=== PATIENT | male | born 1990 | race Caucasian/White ===

== ENCOUNTER 2017-10-06 08:47 | Emergency (ER) | payer MEDICAID, SELFPAY ==
[2017-10-06 08:50] VITALS: BP 126/81; PULSE 76; RESP 16; TEMP 36.3; O2SAT 97; BMI 34.0
--- NOTE | 2017-10-06 09:09 | ED.VISSUMM ---
- ER Visit Summary Date of Service: 10/06/17 Chief Complaint: Depression History of Present Illness: The patient is a 27 M who presents with depression and suicidal gesture that occurred today. Patient states he got into an argument with his girlfriend yesterday and has been feeling more depressed since that time. Patient states he tried to cut his wrist today. Patient states he has been hospitalized one time in the past for depression but does not currently see a psychiatrist. Patient does not take any antidepressant medications. Patient denies any other symptoms at the present time. Physical Examination: Vital signs are stable. Patient is afebrile. Patient is in no acute distress. Patient does have a depressed mood and flat affect. Patient does admit to suicidal ideations. Skin is warm and dry. There are superficial linear abrasions of the volar aspect of the left wrist. There is no bleeding noted. There are no gapping's of the wound margins. Oral mucosa is pink and moist. Heart was regular rate and rhythm. Lungs are clear and equal bilaterally. There is good respiratory effort noted. Abdomen is soft. Bowel sounds are normal. There is no tenderness noted. Cranial nerves II through XII are intact. There are no focal motor or sensory deficits noted. Test Results: CBC, comprehensive metabolic profile, urine tox screen, and serum alcohol level were obtained and were within normal limits. Emergency Department Course and Treatment: Crisis was in to evaluate the patient. They feel the patient is safe to go home. I agree I do not feel the patient is actively suicidal I think this is more of an attention seeking gesture. Patient was instructed to follow-up with crisis as scheduled. Patient understood and was agreeable with the plan. All questions were answered. Disposition: Discharged home Impression: Depression This note was generated with Rock[employer] dictation software. It may contain incorrect words, spelling, and punctuation that were not noted in review of the chart prior to signing ED Disposition - Plan for ED Patient: Disposition: Home or Assisted Living Chief Complaint: Suicidal Diagnosis: Depression Instructions: ED Depression, ED Contract, No Harm Referrals: Care Physician,No Primary [Primary Care Provider] -
[2017-10-06 09:20] LABS: Absolute Lymphocyte Count 1.49 X10^3/ul (0.83-4.51); Absolute Neutrophil Count 2.6 X10^3/uL (2.0-7.7); Basophil# 0.03 X10^3/uL; Basophil% 0.6 % (0-1); Eosinophil# 0.15 X10^3/uL; Eosinophils% 3.2 % (0-5); Hematocrit 44.3 % (40-54); Lymphocyte # 1.49 X10^3/ul (4.0); Lymphocyte % 31.3 % (19-41); Mean Corp Hgb Conc 33.9 g/gl (32-36); Mean Corpuscular Hgb 29.5 pg (27.0-32.0); Mean Platelet Vol. 10.5 fl (6.2-12.0); Monocyte# 0.52 X10^3/uL; Monocyte% 10.9 % (0-10); Neutrophil # 2.57 X10^3/uL (2.7-7.7); Platelet Count 174 K/mm3 (150-450); RBC Distribution Width CV 12.3 % (11.6-14.6); RBC Distribution Width SD 39.4 fl (35.1-43.9); Red Blood Count 5.09 M/mm3 (4.6-6.2); White Blood Count 4.8 K/mm3 (4.4-11.0)
--- NOTE | 2017-10-06 09:22 | ED.RN ---
STEVENSON WITH CRISIS IS AWARE PT IS HERE AND NEEDS TO BE SEEN
[2017-10-06 09:23] LABS: POSITIVE COUNT NO; POSITIVE DIFFERENTIAL NO; POSITIVE MORPHOLOGY NO
[2017-10-06 09:31] LABS: BUN 14 mg/dL (7-18); EST Glomerular Filtration Rate 108 mL/min (>60); Estimated Creatinine Clearance 124.38 ml/min; Glucose 96 mg/dL (74-106)
[2017-10-06 09:32] LABS: ALB/GLOB Ratio 0.9 RATIO (0.9-2.4); AST(SGOT) 15 U/L (15-37); Alanine Aminotransfer ALT/SGPT 26 U/L (16-61); Albumin, Serum 3.7 g/dL (3.2-5.0); Alkaline Phosphatase 142 U/L (45-117); Anion Gap 6 (5-15); BUN/Creat Ratio 15.6 RATIO (10-20); Calcium,Total 8.8 mg/dL (8.5-10.1); Chloride 106 mmol/L (98-107); Est Glom Filt Rate - Afr Amer 131 mL/min (>60); Globulin 3.9 g/dL (2.2-4.2); Potassium 3.5 mmol/L (3.5-5.1); Protein, Total 7.6 g/dL (6.4-8.2); Sodium Level 140 mmol/L (136-145)
[2017-10-06 09:39] LABS: Alcohol, Blood (Medical)-Serum < 3.0 mg/dL
[2017-10-06 10:42] LABS: Amphetamine Urine VISTA NEGATIVE (<1000 ng/mL); Barbiturate Urine VISTA NEGATIVE (< 200 ng/mL); Benzodiazepine Urine VISTA NEGATIVE (< 200 ng/mL); Cocaine Urine VISTA NEGATIVE (< 300 ng/mL); Ecstacy Urine VISTA NEGATIVE (< 500 ng/mL); Methadone Urine VISTA NEGATIVE (< 300 ng/mL); PCP Urine VISTA NEGATIVE (< 25 ng/mL); THC Urine VISTA NEGATIVE (< 50 ng/mL); Vista UDS pH Range 5
[2017-10-06 11:23] VITALS: BP 154/94; PULSE 81; RESP 22; O2SAT 98
--- NOTE | 2017-10-06 11:54 | ED.RN ---
STEVENSON WITH CRISIS IS ON HER WAY TO SEE THE PT
[2017-10-06 14:11] VITALS: BP 116/71; PULSE 82; RESP 16; O2SAT 100
[2017-10-06 15:59] VITALS: BP 119/57; PULSE 86; RESP 20; O2SAT 97
--- NOTE | 2017-10-06 15:59 | ED.RN ---
THIS NURSE REVIEWED D/C INSTRUCTIONS WITH PT. PT VERBALIZED UNDERSTANDING OF INSTRUCTIONS. PT BELONGINGS RETURNED TO PT. PT DENIES FURTHER NEEDS OR QUESTIONS AT THIS TIME. PT AMBULATES FROM ROOM ON OWN WITHOUT ASSISTANCE FROM STAFF
== END 2017-10-06 16:00 | disposition home or self-care (01) ==
PROVIDERS: Emergency Provider Emergency Medicine
DX: F32.9 Major depressive disorder, single episode, unspecified (principal); R45.851 Suicidal ideations
CPT/HCPCS: 36415; 80053; 80307; 80320; 85025; 99285; G0480

== ENCOUNTER 2017-11-11 20:31 | Emergency (ER) | payer MEDICAID, SELFPAY ==
[2017-11-11 20:33] VITALS: BP 120/87; PULSE 82; RESP 20; TEMP 36.2; O2SAT 98; BMI 36.0
--- NOTE | 2017-11-11 21:26 | NURSING ---
PT REPORTS DIARRHEA FOR 2-3 DAYS, BUT NONE TODAY. MOTHER WAS DX'D W/KIRITFF AT [facility] RECENTLY AND HE IS CONCERNED HE MAY HAVE CONTRACTED IT. HE REPORTS NOT HAVING SEN HER MUCH THIS MONTH.
--- NOTE | 2017-11-11 21:46 | ED.VISSUMM ---
- ER Visit Summary Date of Service: 11/11/17 Chief Complaint: Sent to ER because of diarrhea History of Present Illness: The patient is a 27 M who had 2 loose stools yesterday and apparently 2 loose stools today. Last loose stool/Moersch was this morning. Mother is in a chcf and diagnosed with pseudomembranous enterocolitis. He denies fever, chills night sweats. He denies blood or mucus in his stool. He denies foul odor. He has no other symptoms. He is sad because his friend went to the [employer]. Please read written note for complete detail Physical Examination: Vital signs are normal. HEENT exam is remarkable poor dentition. Heart is regular without murmur, gallop or rub. S1 and S2 are normal. Lungs are clear to auscultation with good movement of air bilaterally. Abdomen is soft and nontender. There is no guarding or peritoneal findings. There is no palpable pulsatile mass. There is no abdominal bruit. Reyes sign is negative. Negative Rovsing sign. There is no evidence of inguinal or umbilical hernia. Test Results: None are needed Emergency Department Course and Treatment: None Treatment Plan: Appropriate home-going instructions Disposition: Discharged home Impression: Diarrhea This note was generated with Gigathlete dictation software. It may contain incorrect words, spelling, and punctuation that were not noted in review of the chart prior to signing ED Disposition - Plan for ED Patient: Disposition: Home or Assisted Living Chief Complaint: Diarrhea Instructions: ED Diarrhea Viral Referrals: Care Physician,No Primary [Primary Care Provider] - Additional Instructions: Follow-up with the Dr. alarcon by [facility], your insurance carrier.
--- NOTE | 2017-11-11 21:49 | ED.DCSUM_ITS ---
- ER Visit Summary Date of Service: 11/11/17 Chief Complaint: Sent to ER because of diarrhea History of Present Illness: The patient is a 27 M who had 2 loose stools yesterday and apparently 2 loose stools today. Last loose stool/Moersch was this morning. Mother is in a long-term and diagnosed with pseudomembranous enterocolitis. He denies fever, chills night sweats. He denies blood or mucus in his stool. He denies foul odor. He has no other symptoms. He is sad because his friend went to the [employer]. Please read written note for complete detail Physical Examination: Vital signs are normal. HEENT exam is remarkable poor dentition. Heart is regular without murmur, gallop or rub. S1 and S2 are normal. Lungs are clear to auscultation with good movement of air bilaterally. Abdomen is soft and nontender. There is no guarding or peritoneal findings. There is no palpable pulsatile mass. There is no abdominal bruit. Reyes sign is negative. Negative Rovsing sign. There is no evidence of inguinal or umbilical hernia. Test Results: None are needed Emergency Department Course and Treatment: None Treatment Plan: Appropriate home-going instructions Disposition: Discharged home Impression: Diarrhea This note was generated with [id number] dictation software. It may contain incorrect words, spelling, and punctuation that were not noted in review of the chart prior to signing ED Disposition - Plan for ED Patient: Disposition: Home or Assisted Living Chief Complaint: Diarrhea Instructions: ED Diarrhea Viral Referrals: Care Physician,No Primary [Primary Care Provider] - Additional Instructions: Follow-up with the Dr. alarcon by [facility], your insurance carrier.
== END 2017-11-11 22:01 | disposition home or self-care (01) ==
PROVIDERS: Emergency Provider Emergency Medicine
DX: R19.7 Diarrhea, unspecified (principal); E66.9 Obesity, unspecified; Z68.36 Body mass index [BMI] 36.0-36.9, adult
CPT/HCPCS: 99282

== ENCOUNTER 2018-10-16 17:20 | Emergency (ER) | payer MEDICAID, SELFPAY ==
[2018-10-16 17:21] VITALS: BP 119/72; PULSE 95; RESP 16; TEMP 36.3; O2SAT 97; BMI 29.5
--- NOTE | 2018-10-16 19:30 | CT_ITS ---
STUDY: CT ABDOMEN AND PELVIS WITHOUT CONTRAST REASON FOR EXAM: Male, 28 years old. RUQ AND RT FLANK PAIN X 2 WEEKS BUT WORSE NOW,DYSURIA RADIATION DOSAGE (If Supplied By Facility): CTDIvol = ( 12.93 ) mGy, DLP = ( 717.01 ) mGycm TECHNIQUE: Transaxial images were obtained from the dome of the diaphragm to the symphysis pubis without oral contrast, and without intravenous contrast. Sagittal and coronal images were reconstructed. Individualized dose optimization techniques were used for this CT. COMPARISON: None. FINDINGS: The visualized lung bases are unremarkable. The visualized portions of the heart are within normal limits. Normal liver. Normal gallbladder and extrahepatic biliary system. Normal spleen. Normal pancreas. Normal bilateral adrenal glands. Normal right kidney. Normal left kidney. No definite renal or ureteral stones are seen. There is no hydronephrosis on either side. Evaluation of the GI tract is limited by absence of oral contrast. Cannot exclude stomach wall thickening. No dilated loops of bowel or evidence for obstruction. Cannot exclude segmental thickening of the ayala of the small or large bowel. Cannot exclude enteritis or colitis. Moderate diffuse fecal retention. Appendix within normal limits. Normal abdominal aorta. Normal inferior vena cava. Normal retroperitoneum. Normal urinary bladder. Normal abdominal wall. Normal osseous structures. CT/Abdomen/Pelvis without Cont IMPRESSION: No definite abnormality seen. Electronically Signed: Nicko Guardado MD at 21:22 EDT , Service support ,
--- NOTE | 2018-10-16 19:31 | ED.VISSUMM ---
- ER Visit Summary Date of Service: 10/16/18 Chief Complaint: Right flank pain History of Present Illness: The patient is a 28 M who presents for right flank pain. Patient states he has been having the pain waxing and waning for 3 months. It is sharp and stabbing, severe. He denies any nausea, vomiting, diarrhea, fever. He does have dysuria. Patient states he was seen at another emergency department but they did not do anything for him. Patient denies any other medical history. His uncle has been giving him some pain killers that he thinks were aspirin. Patient denies any alcohol or tobacco use. Physical Examination: Vital signs: afebrile, hemodynamically stable, no hypoxia on room air General: well nourished, well developed, in no distress, poor eye contact Skin: warm, dry, no rash, no pallor HEENT: normocephalic and atraumatic; PERRL, EOMI, moist mucous membranes Cardiovascular: regular rate and rhythm without murmurs, no peripheral edema, 2+ pulses all distal extremities Respiratory: No increased work of breathing, lungs are clear to auscultation bilaterally, no rales, rhonchi or wheezing Abdominal: Abdomen is soft, tender in the right upper and lower abdomen with normoactive bowel sounds, no guarding or rebound, no masses, positive CVA tenderness on the right MSK: Moves all extremities, no deformities, normal strength Neuro: Awake and alert, oriented ?4. No facial droop, sensation and motor function intact and symmetric Test Results: Abnormal Lab Results 10/16/18 10/16/18 10/16/18 19:15 19:15 20:50 WBC 5.0 RBC 5.49 Hgb 16.0 Hct 46.3 MCV 84.3 MCH 29.1 MCHC 34.6 RDW 13.4 RDW Differential 41.0 Plt Count 153 MPV 12.0 Immature Gran % (Auto) 0.000 Neut % (Auto) 56.4 Lymph % (Auto) 23.5 [place] % (Auto) 17.1 H Eos % (Auto) 2.4 Baso % (Auto) 0.6 Absolute Neuts (auto) 2.8 Absolute Lymphs (auto) 1.17 Total Counted Not Reportable Sodium 140 Potassium 3.7 Chloride 110 H Carbon Dioxide 24.0 Anion Gap 6 BUN 13 Creatinine 0.89 Estim Creat Clear Calc 136.84 Est GFR (MDRD) Af Amer 131 Est GFR (MDRD) Non-Af 108 BUN/Creatinine Ratio 14.6 Glucose 90 Calcium 8.8 Total Bilirubin 0.90 AST 17 ALT 21 Alkaline Phosphatase 107 Total Protein 7.8 Albumin 4.2 Globulin 3.6 Albumin/Globulin Ratio 1.2 Lipase 68 L Urine Color Yellow Urine Clarity Sl. Cloudy Urine pH 7.0 Ur Specific [place] 1.005 Urine Protein Negative Urine Glucose (UA) Normal Urine Ketones Negative Urine Occult Blood Negative Urine Nitrite Negative Urine Bilirubin Negative Urine Urobilinogen Normal Ur Leukocyte Esterase Negative Urine RBC 0 SEEN Urine WBC 0 SEEN Ur Squamous Epith Cells 0-5 SEEN Urine Bacteria 0 SEEN Urine Mucus 0 SEEN Clinical Impression(s) from Imaging Studies Abdomen/Pelvis CT 10/16/18 19:30 IMPRESSION: No definite abnormality seen. Electronically Signed: Nicko Guardado MD at 21:22 EDT , Service support , Medications Given Discontinued Medications Sodium Chloride () 1,000 mls @ 1,000 mls/hr IV .Q1H ONE Stop: 10/16/18 20:29 Last Admin: 10/16/18 20:02 Dose: 1,000 mls/hr Ketorolac Tromethamine (Toradol) 15 mg IV X1 ONE Stop: 10/16/18 19:31 Last Admin: 10/16/18 20:03 Dose: 15 mg Ondansetron HCl (Zofran) 4 mg IV X1 ONE Stop: 10/16/18 19:31 Last Admin: 10/16/18 20:02 Dose: 4 mg Emergency Department Course and Treatment: Patient was given IV fluids, Toradol and Zofran for symptomatic relief. Labs, urine and CT flank were performed. Labs were unremarkable. Urine was negative for infection or hematuria. CT the flank showed no acute process, including no kidney stones or other acute pathology. Patient was reevaluated and still was complaining of discomfort. No findings were noted on his workup to explain his flank pain, and since it has been ongoing for 3 months, patient was advised he needs to follow-up with a primary care doctor for further management. Patient was discharged home. Treatment Plan: [] Disposition: [] Impression: Right flank pain of uncertain cause This note was generated with Corso12 dictation software. It may contain incorrect words, spelling, and punctuation that were not noted in review of the chart prior to signing ED Disposition - Plan for ED Patient: Disposition: Home or Assisted Living Instructions: ED Flank Pain Uncertain Cause Prescriptions: RX: Naproxen [Naprosyn] 500 mg PO BID PRN PRN #20 tab PRN Reason: Pain Referrals: Care Physician,No Primary [Primary Care Provider] - Nikita Butler MD [STAFF PHYSICIAN] - 5-7 Days Additional Instructions: Use the naproxen as needed for pain. Please follow-up with your primary care doctor on this paperwork as soon as possible for another evaluation of your ongoing right-sided flank pain. If you have any worsening of your condition or any new concerning symptoms, please return immediately to the emergency department for another evaluation.
[2018-10-16 19:51] LABS: Absolute Lymphocyte Count 1.17 X10^3/ul (0.83-4.51); Absolute Neutrophil Count 2.8 X10^3/uL (2.0-7.7); Basophil# 0.03 X10^3/uL; Basophil% 0.6 % (0-1); Eosinophil# 0.12 X10^3/uL; Eosinophils% 2.4 % (0-5); Hematocrit 46.3 % (40-54); Lymphocyte # 1.17 X10^3/ul (4.0); Lymphocyte % 23.5 % (19-41); Mean Corp Hgb Conc 34.6 g/gl (32-36); Mean Corpuscular Hgb 29.1 pg (27.0-32.0); Mean Corpuscular Volume 84.3 fL (80-94); Monocyte# 0.85 X10^3/uL; Monocyte% 17.1 % (0-10); Neutrophil # 2.81 X10^3/uL (2.7-7.7); Neutrophil % 56.4 % (47-70); Platelet Count 153 K/mm3 (150-450); RBC Distribution Width CV 13.4 % (11.6-14.6); Red Blood Count 5.49 M/mm3 (4.6-6.2)
[2018-10-16 19:52] LABS: POSITIVE COUNT NO; POSITIVE DIFFERENTIAL NO
[2018-10-16 19:53] LABS: POSITIVE MORPHOLOGY NO
[2018-10-16] MEDS: Ondansetron 4 MG/2 ML Vial IV (20:02)
[2018-10-16] MEDS: 0.9% Normal Saline 1,000 ML 1000 ML IV (20:02)
[2018-10-16 20:03] LABS: ALB/GLOB Ratio 1.2 RATIO (0.9-2.4); AST(SGOT) 17 U/L (15-37); Alanine Aminotransfer ALT/SGPT 21 U/L (16-61); Albumin, Serum 4.2 g/dL (3.2-5.0); Alkaline Phosphatase 107 U/L (45-117); BUN 13 mg/dL (7-18); BUN/Creat Ratio 14.6 RATIO (10-20); Calcium,Total 8.8 mg/dL (8.5-10.1); Chloride 110 mmol/L (98-107); Creatinine, Serum 0.89 mg/dL (0.70-1.30); EST Glomerular Filtration Rate 108 mL/min (>60); Est Glom Filt Rate - Afr Amer 131 mL/min (>60); Estimated Creatinine Clearance 136.84 ml/min; Globulin 3.6 g/dL (2.2-4.2); Glucose 90 mg/dL (74-106); Lipase 68 U/L (73-393); Potassium 3.7 mmol/L (3.5-5.1); Protein, Total 7.8 g/dL (6.4-8.2); Sodium Level 140 mmol/L (136-145)
[2018-10-16] MEDS: Ketorolac 30 MG/ML Syringe 15 MG IV (20:03)
[2018-10-16 20:04] VITALS: PULSE 67; RESP 17
[2018-10-16 20:04] LABS: Anion Gap 6 (5-15)
[2018-10-16 21:02] LABS: Bacteria 0 SEEN /hpf (None Seen); Mucous, Urine 0 SEEN /hpf (<or=2+); Red Blood Cells-Urine 0 SEEN /hpf (0-5); White Blood Cells 0 SEEN /hpf (0-5)
[2018-10-16 21:32] LABS: Color, Urine Yellow (Yellow); Glucose, Dipstick Normal (Normal); Ketone-Dipstick Negative (Negative); Leukocyte Esterase-Dipstick Negative /ul (Negative); Nitrite-Dipstick Negative (Negative); Occult Blood-Urine Negative /ul (Negative); Protein-Dipstick Negative (Negative); Specific Gravity, Urine 1.005 (1.002-1.030); Urine Bilirubin Dipstick Negative (Negative); Urine Clarity Sl. Cloudy (Clear); Urine Urobilinogen Normal (Normal)
[2018-10-16 21:48] LABS: Squamous Epithelial Cells - UA 0-5 SEEN /hpf (0-5)
[2018-10-16 22:03] VITALS: RESP 14; O2SAT 99
== END 2018-10-16 22:04 | disposition home or self-care (01) ==
PROVIDERS: Emergency Provider Emergency Medicine
DX: R10.11 Right upper quadrant pain (principal); R10.31 Right lower quadrant pain
CPT/HCPCS: 74176; 80053; 81001; 83690; 85025; 96361; 96374; 96375; 99283; J7030; A4216; J2405

== ENCOUNTER 2018-10-31 16:26 | Emergency (ER) | payer MEDICAID, SELFPAY ==
[2018-10-31 16:26] VITALS: BP 130/81; PULSE 80; RESP 16; TEMP 36.8; O2SAT 97; BMI 29.7
--- NOTE | 2018-10-31 17:53 | ED.VISSUMM ---
- ER Visit Summary Date of Service: 10/31/18 Chief Complaint: [Dental pain] History of Present Illness: The patient is a 28 M [presents the emergency department complaint dental pain that started a year ago. Patient had pain off and on. Patient tells me scheduled to see a dentist tomorrow but does not know who he is seeing because his friend made the appointment for him because he was having a hard time talking. Patient is somewhat of a poor historian and states that he is disabled because of mental retardation. Patient denies any fevers. He denies any trauma.] Physical Examination: [HEENT-PERRLA, EOMI. Cranial nerves II through XII grossly intact. TMs clear. Mucous membranes moist. No adenopathy. Dentition-patient has broken and carried right lower molars that are tender to palpation. He has some gingival erythema but there is no evidence of fluctuant discrete abscess. There is no facial cellulitis. No trismus on exam. No adenopathy. Cardiovascular-regular rate and rhythm without murmur or ectopy Lungs-clear to auscultation, chest wall stable without crepitus or subcu emphysema Abdomen-normoactive bowel sounds, soft, nontender, no rebound or rigidity, no peritoneal signs. Extremities-intact ?4, normal range of motion, normal pulses, atraumatic] Test Results: [None indicated] Emergency Department Course and Treatment: [Patient was given a dose of clindamycin in the emergency department] Treatment Plan: [Patient will be given prescription for clindamycin and for [place] for home to get him through until he can see his dentist tomorrow.] Disposition: [Discharged home in stable condition] Impression: [Dental pain] This note was generated with [employer] dictation software. It may contain incorrect words, spelling, and punctuation that were not noted in review of the chart prior to signing ED Disposition - Plan for ED Patient: Referrals: Care Physician,No Primary [Primary Care Provider] -
--- NOTE | 2018-10-31 17:55 | ED.DEP ---
ED Disposition - Plan for ED Patient: Instructions: ED Tooth Pain, ED Cavity Dental Prescriptions: Clindamycin HCl [Cleocin] 300 mg PO Q6H #40 cap Referrals: Care Physician,No Primary [Primary Care Provider] - Additional Instructions: see your dentist tomorrow
[2018-10-31] MEDS: HYDROcodone Bitartrate/Apap 5/325 Tablet PO (18:07)
[2018-10-31] MEDS: Clindamycin HCl 150 MG Capsule 300 MG PO (18:08)
== END 2018-10-31 18:11 | disposition home or self-care (01) ==
LOC: ED 18:03
PROVIDERS: Emergency Provider Emergency Medicine
DX: K08.89 Other specified disorders of teeth and supporting structures (principal); F79 Unspecified intellectual disabilities
CPT/HCPCS: 99283

== ENCOUNTER 2021-06-16 14:04 | Emergency (ER) | payer MEDICAID, SELFPAY ==
[2021-06-16 14:05] VITALS: BP 120/87; PULSE 83; RESP 16; TEMP 36.6; O2SAT 100; BMI 34.8
[2021-06-16 14:10] VITALS: RESP 16
--- NOTE | 2021-06-16 14:27 | EDS_ITS ---
HPI History of Present Illness Chief Complaint: GI Bleed Informant: patient Narrative Narrative: Patient presents with rectal bleeding. He states he has had this off and on for about 3 years. It tends to occur after he is constipated. He states he has been constipated recently. He did not remember when his last bowel movement was except for last night. He had not gone for at least several days before that. He strained to go the bathroom. It was painful and he had blood in the toilet. Stool was evidently normal. He did have a couple more episodes of some blood mostly with wiping. He is not getting lightheaded or dizzy. He was not having abdominal pain with that. He states sometimes over the last few years he gets abdominal pain. It woke her in different spots and usually lasts seconds to minutes. There is no consistency. He has no history of chronic bowel disease. He does not know of any in his family but he does not really speak with his father. He has never had abdominal surgery. He is on no meds. He has no allergies. Nothing seems to make his symptoms better. The bleeding does get worse when he is constipated and then finally moves his bowels. He has never had this evaluated before. [facility] History no medical history Home Medications hydrocortisone [Anusol-HC] 1 applic VT DAILY PRN #30 g 06/16/21 [Rx Last Taken Unknown] Allergy/AdvReac Type Severity Reaction Status Date / Time No Known Allergies Allergy Verified 06/16/21 14:07 Surgical History no surgical history Social History Smoking Status: Former smoker ROS ROS ED Constitutional Constitutional ED: Denies chills or fever(s) ENT ENT ED: Denies rhinorrhea or sore throat Cardiovascular Cardiovascular: Denies chest pain or palpitations Respiratory/Chest Respiratory/Chest: Denies cough or dyspnea Gastrointestinal Gastrointestinal: Reports other Details: No pain now. See history of present illness. No melena but he did have bright red blood. ; Denies abdominal pain, constipation, diarrhea, melena, nausea or vomiting Genitourinary Genitourinary ED: Denies dysuria or hematuria Musculoskeletal Musculoskeletal: Denies back pain Integumentary Denies rash Neurologic Neurologic: Denies headache(s) Endocrine Endocrinology: Denies polydipsia or polyuria Allergic/Immunologic Allergic/Immunologic ED: Denies mouth swelling or urticaria EXAM Physical Exam Const Vital Signs: 06/16/21 14:05 06/16/21 14:10 Temperature 98 F Temperature Source Temporal Pulse Rate 83 Respiratory Rate 16 16 Blood Pressure 120/87 H Blood Pressure Mean 98 Pulse Ox 100 Oxygen Delivery Method Room Air Positive well nourished and well developed General Appearance ED: well developed and NAD; Negative for cyanotic or diaphoretic HEENT Negative for trauma or tenderness Eyes Negative for PERRL General Eye ED: Negative for pale conjunctiva Neck No supple Chest Wall Negative for inspection of chest normal or palpation of chest normal Resp normal respiratory effort and clear to auscultation bilaterally Cardio regular rate and regular rhythm GI normal to inspection, nondistended, normoactive bowel sounds, non-tender and non-distended GI Narrative: Rectal exam shows no hemorrhoids at all. There is a small fissure. There is no sign of infection. No abscess or tenderness. There is no active bleeding. Palpation: soft Back/Spine no CVA tenderness Extremity normal to inspection Neuro oriented x3 Sensorium / Orientation: alert Skin no rashes or lesions noted and no wounds MDM MDM MDM Narrative Medical decision making narrative: Patient CBC is normal. Hemoglobin is normal at 15.2. His history is consistent with rectal pain and bleeding after being constipated. Exam shows a fissure. There is no hemorrhoid. No sign of abscess. We discussed increasing fluids and activity. Also discussed using a small dose of MiraLAX daily for hydration and regular bowel movements. I will write for some cream to ease irritation. He will follow-up with gastroenterology. Lab Data Attestation: I reviewed the patient's lab results. Labs: Laboratory Results - last 24 hr 06/16/21 14:37 WBC 4.9 RBC 5.36 Hgb 15.2 Hct 45.5 MCV 84.9 MCH 28.4 MCHC 33.4 RDW Std Deviation 38.8 RDW Coeff of Wilfredo 12.7 Plt Count 182 MPV 10.9 Immature Gran % (Auto) 0.200 Neut % (Auto) 56.7 Lymph % (Auto) 26.6 [place] % (Auto) 12.2 H Eos % (Auto) 3.3 Baso % (Auto) 1.0 Absolute Neuts (auto) 2.8 Absolute Lymphs (auto) 1.31 Nucleated RBC % 0 Discharge Plan Triage Chief Complaint: GI Bleed ED Provider: Yonny Mason Dx/Rx/DC Orders Clinical Impression: Constipation, Rectal fissure, Rectal bleeding Instructions: ED Understanding Anal Fissures, ED Constipation (Adult) Prescriptions: New hydrocortisone [Anusol-HC] 2.5 % cream with perineal applicator 1 applic VT DAILY PRN (Reason: pain) Qty: 30 RF: 0 Primary Care Provider: Care Physician,No Primary Referrals: Friend,Dinesh, [STAFF PHYSICIAN] - 1 Week Care Physician,No Primary [Primary Care Provider] - Disposition Disposition: Home, Self Care
[2021-06-16 14:41] LABS: Absolute Lymphocyte Count 1.31 X10^3/uL (0.83-4.51); Absolute Neutrophil Count 2.8 X10^3/uL (2.0-7.7); Basophil# 0.05 X10^3/uL; Eosinophil# 0.16 X10^3/uL; Eosinophils% 3.3 % (0-5); Hematocrit 45.5 % (40-54); Hemoglobin 15.2 g/dL (13.0-16.5); Lymphocyte # 1.31 X10^3/ul (0.83-4.51); Lymphocyte % 26.6 % (19-41); Mean Corp Hgb Conc 33.4 g/dL (32-36); Mean Corpuscular Hgb 28.4 pg (27.0-32.0); Mean Corpuscular Volume 84.9 fL (80-94); Mean Platelet Vol. 10.9 fl (6.2-12.0); Monocyte% 12.2 % (0-10); NRBC Flagged by Analyzer 0 % (0-5); Neutrophil # 2.79 X10^3/uL (2.7-7.7); Neutrophil % 56.7 % (47-70); Platelet Count 182 K/mm3 (150-450); RBC Distribution Width CV 12.7 % (11.6-14.6); RBC Distribution Width SD 38.8 fl (35.1-43.9); Red Blood Count 5.36 M/mm3 (4.6-6.2); White Blood Count 4.9 K/mm3 (4.4-11.0)
[2021-06-16 15:24] VITALS: BP 118/69; PULSE 62; RESP 15; O2SAT 98
== END 2021-06-16 15:25 | disposition home or self-care (01) ==
PROVIDERS: Emergency Provider Emergency Medicine
DX: K59.00 Constipation, unspecified (principal); K62.5 Hemorrhage of anus and rectum; Z87.891 Personal history of nicotine dependence
CPT/HCPCS: 36415; 85025; 99282

== ENCOUNTER 2021-07-24 09:32 | Day surgery (SDC) | payer MEDICAID, SELFPAY ==
--- NOTE | 2021-07-24 | COLBX_PTH ---
PATIENT: RONALDO HAWTHORNE LOC: EN U#:[id number] AGE/SX: 31/M ROOM: RE07/24/[address]: Dr. Dinesh Live DO : 1990 BED: DIS: 07/24/2021 SPEC #: [id number] RECD: 07/25/21 10:42 STATUS: LAKISHA NELL #: [id number] HAMMAD: 07/24/21 00:[address]: Dinesh Live DEPT: SURGICAL PATHOLOGY RECD BY: Vijay Perez ENTERED: 07/25/21 10:43 SP TYPE: COLON BX OTHR DR: No Primary Care Phys Tissues: Ileum, NOS Procedures: Surgery Specimen Level IV HEADER OPERATION: Colonoscopy (MAC) PRE-OP DIAGNOSIS: Constipation, anal fissure TISSUE SUBMITTED: Terminal ileum biopsy MICROSCOPIC DIAGNOSIS Terminal ileum, biopsy: No pathologic change. AM:hattie 07/26/2021 MICROSCOPIC DESCRIPTION Slides are reviewed. GROSS DESCRIPTION Received in fixative is one container labeled with the patient's name and designated terminal ileum biopsy. The specimen consists of one irregular fragment of light gaffney soft tissue that measures 0.5 x 0.5 x 0.1 cm. The specimen is totally submitted in one cassette. / SJ:hattie 07/25/21 TC:5 CPT: 17462
[2021-07-24 10:05] VITALS: BP 113/89; PULSE 78; RESP 16; TEMP 36.8; O2SAT 100; BMI 34.0
[2021-07-24] MEDS: Lactated Ringers 1,000 ML 15 ML IV (10:12)
[2021-07-24 11:11] VITALS: BP 103/72; BP 113/89; PULSE 74; RESP 16; TEMP 36.1; O2SAT 98
--- NOTE | 2021-07-24 11:12 | OP.CCLET_ITS ---
03/27/2022 No Primary Care Physician Re : Colonoscopy procedure for [facility] Phys[facility] This procedure was performed on Saturday, July 24, 2021. My impressions and recommendations are as follows: Impressions : - Anal fissure found on perianal exam. - The entire examined colon is normal. - Congested mucosa in the terminal ileum. Biopsied. Recommendations : - Discharge patient to home. - Resume previous diet. - Continue present medications. - Await pathology results. - Return to my office in 2 weeks. - Use hydrocortisone suppository 25 mg 2 per rectum once a day for 3 weeks. - Repeat colonoscopy is recommended for surveillance. The colonoscopy date will be determined after pathology results from today's exam become available for review. My findings are described in the full procedure note, which is enclosed. If I can be of further assistance, please feel free to contact me at . Sincerely, Dinesh Friend, 07/24/2021 11:11:54 AM This report has been signed electronically.
--- NOTE | 2021-07-24 11:12 | OP.COLON_ITS ---
Patient Name: Ji Jha Procedure Date: 07/24/2021 10:43 AM Date of : 1990 Age: 31 Procedure: Colonoscopy Indications: Hematochezia Providers: Dinesh Live DO Medicines: See the Anesthesia note for documentation of the administered medications Patient Profile: This is a 31 year old male. Refer to note in patient chart for documentation of history and physical. Last Colonoscopy: 3 years ago. Complications: No immediate complications. Procedure: Pre-Anesthesia Assessment: - Prior to the procedure, a History and Physical was performed, and patient medications and allergies were reviewed. The patient is competent. The risks and benefits of the procedure and the sedation options and risks were discussed with the patient. All questions were answered and informed consent was obtained. Patient identification and proposed procedure were verified by the physician in the pre-procedure area. Mental Status Examination: alert and oriented. Airway Examination: normal oropharyngeal airway and neck mobility. Respiratory Examination: clear to auscultation. CV Examination: normal. Prophylactic Antibiotics: The patient does not require prophylactic antibiotics. Prior Anticoagulants: The patient has taken no previous anticoagulant or antiplatelet agents. ASA Grade Assessment: II - A patient with mild systemic disease. After reviewing the risks and benefits, the patient was deemed in satisfactory condition to undergo the procedure. The anesthesia plan was to use moderate sedation / analgesia (conscious sedation). Immediately prior to administration of medications, the patient was re-assessed for adequacy to receive sedatives. The heart rate, respiratory rate, oxygen saturations, blood pressure, adequacy of pulmonary ventilation, and response to care were monitored throughout the procedure. The physical status of the patient was re-assessed after the procedure. After I obtained informed consent, the scope was passed under direct vision. Throughout the procedure, the patient's blood pressure, pulse, and oxygen saturations were monitored continuously. The Colonoscope was introduced through the anus and advanced to the terminal ileum. The colonoscopy was performed without difficulty. The patient tolerated the procedure well. The quality of the bowel preparation was good. Moderate Sedation: Moderate (conscious) sedation was administered by the endoscopy nurse and supervised by the endoscopist. The patient's oxygen saturation, heart rate, blood pressure and response to care were monitored. Total physician intraservice time was 15 minutes. Scope In: 10:54:01 AM Scope Withdrawal Time 0 hours 9 minutes 43 seconds Scope Out: 11:05:43 AM Total Procedure Duration Time 0 hours 11 minutes 42 seconds Findings: An anal fissure was found on perianal exam. The colon (entire examined portion) appeared normal. A scattered area of the terminal ileum was congested. Biopsies were taken with a cold forceps for histology. Verification of patient identification for the specimen was done. Estimated blood loss was minimal. Impression: - Anal fissure found on perianal exam. - The entire examined colon is normal. - Congested mucosa in the terminal ileum. Biopsied. Recommendation: - Discharge patient to home. - Resume previous diet. - Continue present medications. - Await pathology results. - Return to my office in 2 weeks. - Use hydrocortisone suppository 25 mg 2 per rectum once a day for 3 weeks. - Repeat colonoscopy is recommended for surveillance. The colonoscopy date will be determined after pathology results from today's exam become available for review. Procedure Code(s): --- Professional --- 05162, Colonoscopy, flexible; with biopsy, single or multiple 39470, 59, Moderate sedation services provided by the same physician or other qualified health care management associate performing the diagnostic or therapeutic service that the sedation supports, requiring the presence of an independent trained observer to assist in the monitoring of the patient's level of consciousness and physiological status; initial 15 minutes of intraservice time, patient age 5 years or older CPT copyright 2017 [employer]. All rights reserved. The codes documented in this report are preliminary and upon foreign agent review may be revised to meet current compliance requirements. Dinesh Live DO 07/24/2021 11:11:54 AM This report has been signed electronically. Number of Addenda: 1 Note Initiated On: 07/24/2021 10:43 AM Addendum Number: 1 Addendum Date: 03/27/2022 6:06:42 AM MAC was used instead of moderate sedation for the patient. Dinesh Live DO 03/27/2022 6:06:49 AM This report has been signed electronically.
[2021-07-24 11:15] VITALS: BP 113/89; BP 92/68; PULSE 75; RESP 16; O2SAT 98
[2021-07-24 11:20] VITALS: BP 109/74; BP 113/89; PULSE 60; RESP 16; O2SAT 99
[2021-07-24 11:32] VITALS: BP 111/79; BP 113/89; PULSE 58; RESP 16; O2SAT 100
--- NOTE | 2021-07-24 11:37 | HP.PCM_ITS ---
History and Physical Date of Admission: 07/24/21 31 M who presents to the office today for Since he was 22 he has been having problems with bleeding with mucous from his bowels. Denies constipation or diarrhea. He will get short bouts of pain around the same time as his bleed. Has not tried anything OTC. Presented to [facility] ED 06/16/21 with rectal bleeding that had been present off and on for about 3 years occurring primarily after constipation. Exam found a fissure, no hemorrhoids. Recommended Miralax daily and cream prescribed for ir ritation. CT abd/pel 10/16/18 without contrast made evaluation of GI tract limited. Cannot exclude bowel wall thickening. Cannot exclude enteritis or colitis. Moderate diffuse fecal retention. Denies coloscopy and EGD. ROS Gastro GI: Positive for abdominal pain, bloating and diarrhea Musc Musculoskeletal: Positive for back pain and muscle cramps Exam Const General: cooperative and comfortable Nutritional Appearance: average body habitus and well nourished HENMT Head: normal to inspection Ears: hearing grossly normal bilaterally Nose: external nose normal Face and sinus: normal facial exam Mouth: oral mucosae normal Throat: posterior oropharynx normal Eyes General: appearance normal, both eyes and all related structures Neck Neck: normal visual inspection Chest Chest palpation & inspection: normal inspection of the chest and normal palpation of entire chest wall Resp Effort & Inspection: normal respiratory effort Auscultation: Bilateral: Clear to Auscultation Cardio Palpation: normal PMI Rate: regular rate Rhythm: regular rhythm GI Inspection: normal to inspection Auscultation: normal bowel sounds Percussion: normal to percussion Palpation: no hepatosplenomegaly Skin General: no rashes or lesions noted Neuro General: patient alert Extrem General: normal to inspection Psych Affect: normal affect Quality Reporting Tobacco Screening ([facility] 138) Smoking Status: Former smoker Assessment and Plan Assessment and Plan (1) Constipation: Status: Acute Plan - Dr. Montiel Friend, DO: He has chronic idiopathic constipation. We will evaluate his colon to see if there is no other signs of diverticular disease, stricturing disease, anal stenosis that with constipation. (2) Anal fissure: Status: Acute Plan - Dr. Montiel Friend, DO: We will perform colonoscopy and evaluate him for hemorrhoids and an anal fissure. Hopefully we can treat him medically or possibly with endoscopy if not he may need to be referred to surgery. I have re-examined the patient. There are no clinical changes since date of exam.
[2021-07-24 12:00] VITALS: BP 113/89
== END 2021-07-24 23:59 | disposition home or self-care (01) ==
LOC: EN 09:37 → AC 09:55
PROVIDERS: Visit Provider Internal Medicine Gastroenterology
PROC: 0DJD8ZZ Inspection of Lower Intestinal Tract, Via Natural or Artificial Opening Endoscopic (ICD-10-PCS; CPT 45378; principal; 2021-07-24 10:40)
DX: K60.2 Anal fissure, unspecified (principal); Z87.891 Personal history of nicotine dependence; F84.0 Autistic disorder
CPT/HCPCS: 45380; 87426; 88305; J7120; J2405

== ENCOUNTER 2022-05-08 20:28 | Emergency (ER) | payer MEDICAID, SELFPAY ==
[2022-05-08 20:29] VITALS: BP 133/95; PULSE 88; RESP 18; TEMP 36.4; O2SAT 97; BMI 34.7
--- NOTE | 2022-05-08 20:32 | ED.RN ---
ATTEMPTED TO CALL RT X2 FOR EKG,PHONE JUST RUNG,NO ANSWER.
[2022-05-08 20:45] VITALS: BP 127/84; PULSE 84; RESP 22; O2SAT 96
--- NOTE | 2022-05-08 20:49 | EKG12_ITS ---
Test Reason : CP Blood Pressure : / mmHG Vent. Rate : 083 BPM Atrial Rate : 083 BPM P-R Int : 176 ms QRS Dur : 140 ms QT Int : 414 ms P-R-T Axes : 026 -60 021 degrees QTc Int : 486 ms Normal sinus rhythm Right bundle branch block Left anterior fascicular block Bifascicular block Abnormal ECG Confirmed by KIZZY HAY, MARYELLEN ([id number]), online editor PRAFUL MARTIN ([id number]) on 05/12/2022 9:46:57 AM Referred By: MAKAYLA Confirmed By:MARYELLEN DURAND MD
--- NOTE | 2022-05-08 20:50 | ED.VIS.CHEST ---
HPI History of Present Illness Chief Complaint: Chest Pain Narrative Narrative: Patient with past medical history of MRDD and autism states he began having central/substernal chest pain and tightness that began approximately 2 hours ago. He denies any nausea or vomiting, but states he has been short of breath in the past. No recent fevers or chills. No cough. No leg swelling. He denies any exacerbating or alleviating factors. PFSH PFSH Medical History Anal fissure Autism Constipation Easy bruising Former smoker Allergy/AdvReac Type Severity Reaction Status Date / Time No Known Allergies Allergy Verified 05/08/22 20:31 Social History Smoking Status: Former smoker ROS ROS ED ROS Narrative Constitutional: No fever, no chills. HEENT: No sore throat. No neck pain. No loss of vision. No rhinorrhea. Cardiovascular: Positive substernal chest tightness/chest pain. No palpitations. No pedal edema. Respiratory: No cough, occasional shortness of breath. Abdominal: No abdominal pain. No nausea. No vomiting. Genitourinary: No dysuria. No hematuria. Musculoskeletal: No myalgias. No arthralgias. Neurologic: No headaches. No dizziness. No lightheadedness. Skin: No rash. No change in color. Psychiatric: No depression. No anxiety. EXAM Physical Exam Narrative Exam Narrative: Afebrile. Vital signs noted. HEENT: Normocephalic. Atraumatic. PERRL, EOMI. Neck soft and supple. No point tenderness or step off. Cardiovascular: Regular rate and rhythm. No murmurs, rubs, or gallops appreciated. Respiratory: No tachypnea. Lungs clear to auscultation bilaterally. Gastrointestinal: Abdomen soft, nontender, with normoactive bowel sounds. No rebound or guarding. Neurological: Awake. Alert. Nonfocal, nonlateralizing. Skin: No rash. Normal color. No pallor. Musculoskeletal: No pedal edema. Full range of motion extremities. Const Vital Signs: 05/08/22 20:29 05/08/22 20:45 05/08/22 20:54 Temperature 97.6 F L Temperature Source Temporal Pulse Rate 88 84 Respiratory Rate 18 22 H Blood Pressure 133/95 H 127/84 H Blood Pressure Mean 107 98 Pulse Ox 97 96 Oxygen Delivery Method Room Air Room Air Room Air 05/08/22 21:55 05/08/22 23:18 Temperature Temperature Source Pulse Rate 73 72 Respiratory Rate 18 18 Blood Pressure 131/92 H 113/51 L Blood Pressure Mean 105 71 Pulse Ox 97 95 Oxygen Delivery Method Room Air Room Air Heart Score History: Slightly/Non-Suspicious ECG: Normal Age: </= 45 years Risk Factors: No Risk Factors Score: 0 MDM MDM MDM Narrative Medical decision making narrative: Chest pain work-up was pursued. EKG was obtained and interpreted by myself. It shows normal sinus rhythm with a right bundle branch block and left anterior fascicular block at 83 bpm but no acute ST changes. No STEMI. He is PERC negative, and denies any DVT or PE risk factors. Pulse ox is 97% on room air without evidence of hypoxia. He was administered aspirin. I will check his chest x-ray and laboratory work including troponin with delta troponin. CBC is grossly normal with a normal white count of 8.4, hemoglobin normal at 14.5, hematocrit 43.8. Electrolyte panel shows hypokalemia of 3.4 which was replaced orally with 40 mill equivalents. He has a normal glucose and a normal BUN and creatinine. Initial high-sensitivity troponin is 4. His repeat 2-hour troponin is 4 for a delta of 0. Chest x-ray interpreted by myself shows no acute process. At this point in time, I feel he can be discharged safely home with follow-up to his primary care provider. Return instructions were reviewed. Disposition is discharged home in stable condition. Lab Data Attestation: I reviewed the patient's lab results. Labs: Laboratory Results - last 24 hr 05/08/22 05/08/22 05/08/22 20:55 20:55 23:15 WBC 8.4 RBC 5.09 Hgb 14.5 Hct 43.8 MCV 86.1 MCH 28.5 MCHC 33.1 RDW Std Deviation 39.3 RDW Coeff of Wilfredo 12.7 Plt Count 218 MPV 10.7 Immature Gran % (Auto) 0.200 Neut % (Auto) 67.1 Lymph % (Auto) 21.5 Caroline % (Auto) 8.4 Eos % (Auto) 2.1 Baso % (Auto) 0.7 Absolute Neuts (auto) 5.7 Absolute Lymphs (auto) 1.81 Nucleated RBC % 0 Sodium 140 Potassium 3.4 L Chloride 106 Carbon Dioxide 26.0 Anion Gap 8 BUN 12 Creatinine 1.00 Estim Creat Clear Calc 107.03 Est GFR (MDRD) Af Amer 113 Est GFR (MDRD) Non-Af 93 BUN/Creatinine Ratio 12.1 Glucose 97 Calcium 9.4 Troponin I High Sens 4 4 Radiography Diagnostic Testing: Clinical Impression(s) from Imaging Studies Chest X-Ray 05/08/22 21:00 IMPRESSION: No acute cardiopulmonary disease or major interval change. Electronically Signed: Vinnie Palomo DO at 21:30 EDT Reading Location ID and State: [address] [place] [address] Tel [phone], Service support , Discharge Plan Triage Chief Complaint: Chest Pain ED Provider: Negrito Shannon Dx/Rx/DC Orders Clinical Impression: Chest pain, Hypokalemia, Autism Instructions: ED Chest Pain, Uncertain Cause, ED Hypokalemia Primary Care Provider: Care Physician,No Primary Referrals: Care Physician,No Primary [Primary Care Provider] - Disposition Disposition: Home, Self Care
[2022-05-08] MEDS: Aspirin 81 MG TAB.CHEW 324 MG PO (20:52)
--- NOTE | 2022-05-08 21:00 | RAD_ITS ---
STUDY: X-RAY CHEST REASON FOR EXAM: Male, 32 years old. Chest pain. Nausea. TECHNIQUE: Single AP portable view of the chest. COMPARISON: 08/13/2017. FINDINGS: The lungs are clear and expanded. There is no demonstrated pleural abnormality. Normal size heart. Normal mediastinum and silverio. Normal visualized pulmonary arteries. Normal visualized aortic arch and descending thoracic aorta. Normal visualized thoracic spine. Normal visualized ribs, clavicles, and shoulders. There is no demonstrated abnormality of the visualized soft tissue structures of the upper abdomen. RAD/Chest 1 View (Portable) IMPRESSION: No acute cardiopulmonary disease or major interval change. Electronically Signed: Vinnie Palomo DO at 21:30 EDT ,
[2022-05-08 21:06] LABS: Absolute Lymphocyte Count 1.81 X10^3/uL (0.83-4.51); Absolute Neutrophil Count 5.7 X10^3/uL (2.0-7.7); Basophil# 0.06 X10^3/uL; Basophil% 0.7 % (0-1); Eosinophil# 0.18 X10^3/uL; Eosinophils% 2.1 % (0-5); Hematocrit 43.8 % (40-54); Hemoglobin 14.5 g/dL (13.0-16.5); Lymphocyte # 1.81 X10^3/ul (0.83-4.51); Lymphocyte % 21.5 % (19-41); Mean Corp Hgb Conc 33.1 g/dL (32-36); Mean Corpuscular Hgb 28.5 pg (27.0-32.0); Mean Corpuscular Volume 86.1 fL (80-94); Mean Platelet Vol. 10.7 fl (6.2-12.0); Monocyte# 0.71 X10^3/uL; Monocyte% 8.4 % (0-10); NRBC Flagged by Analyzer 0 % (0-5); Neutrophil # 5.65 X10^3/uL (2.7-7.7); Neutrophil % 67.1 % (47-70); Platelet Count 218 K/mm3 (150-450); RBC Distribution Width CV 12.7 % (11.6-14.6); RBC Distribution Width SD 39.3 fl (35.1-43.9); Red Blood Count 5.09 M/mm3 (4.6-6.2); White Blood Count 8.4 K/mm3 (4.4-11.0)
[2022-05-08 21:24] LABS: Anion Gap 8 (5-15); BUN 12 mg/dL (7-18); BUN/Creat Ratio 12.1 RATIO (10-20); Calcium,Total 9.4 mg/dL (8.5-10.1); Chloride 106 mmol/L (98-107); EST Glomerular Filtration Rate 93 mL/min (>60); Est Glom Filt Rate - Afr Amer 113 mL/min (>60); Estimated Creatinine Clearance 107.03 ml/min; Glucose 97 mg/dL (74-106); Potassium 3.4 mmol/L (3.5-5.1); Sodium Level 140 mmol/L (136-145); Troponin-I HS (w/2H Reflex) 4 pg/mL (3.0-78.0)
[2022-05-08 21:55] VITALS: BP 131/92; PULSE 73; RESP 18; O2SAT 97
[2022-05-08 23:00] LABS: Reflex Troponin-HS? (from REC) Y
[2022-05-08] MEDS: Potassium Chloride Oral Tablet 20 MEQ 40 MEQ PO (23:12)
[2022-05-08 23:18] VITALS: BP 113/51; PULSE 72; RESP 18; O2SAT 95
[2022-05-08 23:39] LABS: Troponin-I HS 4 pg/mL (3.0-78.0)
== END 2022-05-08 23:53 | disposition home or self-care (01) ==
PROVIDERS: Emergency Provider Emergency Medicine; Visit Provider Emergency Medicine
DX: R07.9 Chest pain, unspecified (principal); E87.6 Hypokalemia; F84.0 Autistic disorder; Z87.891 Personal history of nicotine dependence
CPT/HCPCS: 71045; 80048; 84484; 85025; 93005; 99284; A4216

== ENCOUNTER 2022-11-01 19:37 | Emergency (ER) | payer MEDICAID, SELFPAY ==
[2022-11-01 19:37] VITALS: BP 144/101; PULSE 104; RESP 16; TEMP 36.6; O2SAT 97; BMI 39.6
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
[2022-11-01] MEDS: Amox/Clavulanate 875 MG Tablet PO (20:22)
[2022-11-01] MEDS: Ibuprofen 200 MG Tablet 400 MG PO (20:22)
== END 2022-11-01 21:46 | disposition home or self-care (01) ==
PROVIDERS: Emergency Provider Emergency Medicine; PCP Internal Medicine; Visit Provider Emergency Medicine
DX: K08.89 Other specified disorders of teeth and supporting structures (principal); R68.84 Jaw pain; Z87.891 Personal history of nicotine dependence
CPT/HCPCS: 99283

== ENCOUNTER 2024-07-26 18:27 | Emergency (ER) | payer MEDICAID, SELFPAY ==
[2024-07-26 18:28] VITALS: BP 126/83; PULSE 68; RESP 68; TEMP 36.2; O2SAT 98; BMI 36.2
--- NOTE | 2024-07-26 19:30 | ED.VIS.DENTA ---
HPI History of Present Illness Chief Complaint: Dental Informant: patient Onset/Context/Timing Onset: Days (3) Context: Gradual Onset Timing: Continuous Quality: Throbbing Location: Right upper and lower molars and premolars Worsened by: Nothing Relieved by: NSAIDs (Ibuprofen) Associated Symptoms Assocated Symptom - Dental: jaw swelling and face swelling; Negative for fever, cold sensitivity or hot sensitivity Narrative Narrative: Patient presents with dental pain that has been getting worse over the last 3 days. Patient describes it as throbbing. Patient states it is over the right upper and lower molars and premolars. Patient states nothing makes it worse. Patient states he has been taking [id number] ibuprofen with some relief. Patient admits to some jaw and facial swelling today. Patient denies any fevers or chills. Patient denies any difficulty breathing or difficulty swallowing. [facility] Medical History Easy bruising Former smoker Anal fissure Constipation Autism Home Medications ?Medication ?Instructions ?Recorded ?Last Taken ?Type amoxicillin 500 mg tablet 500 mg PO TID #30 tabs 07/26/24 Unknown Rx Allergy/AdvReac Type Severity Reaction Status Date / Time No Known Allergies Allergy Verified 07/26/24 18:28 Surgical History no surgical history no surgical history Social History (Updated 07/26/24 @ 19:[address] Bebeto Shelley DO) Smoking Status: Current some day smoker tobacco type: cigarettes ROS ROS ED Constitutional Constitutional ED: Denies chills or fever(s) Eyes Eyes: Denies blurry vision or change in vision ENT ENT ED: Denies rhinorrhea or sore throat Cardiovascular Cardiovascular: Denies chest pain or palpitations Respiratory/Chest Respiratory/Chest: Denies cough or dyspnea Gastrointestinal Gastrointestinal: Denies nausea or vomiting Genitourinary Genitourinary ED: Denies dysuria or hematuria Musculoskeletal Musculoskeletal: Denies back pain or neck pain Integumentary Denies abscess or rash Neurologic Neurologic: Denies headache(s) or weakness Allergic/Immunologic Allergic/Immunologic ED: Denies mouth swelling or urticaria EXAM Physical Exam Const Vital Signs: 07/26/24 18:28 Temperature 97.1 F L Temperature Source Temporal Pulse Rate 68 Respiratory Rate 68 H Blood Pressure 126/83 H Blood Pressure Mean 97 Pulse Ox 98 Oxygen Delivery Method Room Air Positive well nourished and well developed General Appearance ED: well developed and NAD HEENT HEENT Narrative: There are multiple dental carry noted. There is some gingival edema overlying the right upper premolar and molar area. There is also some mild gingival edema of the right lower premolars and molars. There is no fluctuance. There is no discharge or drainage. There is no sublingual edema. There is no evidence of Javid's angina. Teeth and Gingiva: caries and gingiva abnormal Positive for gingival edema Throat: posterior oropharynx normal Neck supple and no JVD Lymph Lymphatic: no lymphadenopathy noted Resp normal respiratory effort and clear to auscultation bilaterally Cardio regular rate and regular rhythm Neuro oriented x3, CN's II-XII intact bilaterally, moves all extremities, no focal motor deficits and no sensory deficits noted Sensorium / Orientation: alert Motor Exam: strength 5/5 throughout Psych mental status grossly normal MDM MDM MDM Narrative Medical decision making narrative: Patient was advised that these are infected dental caries. Patient was given a dose of amoxicillin here. Patient was given a prescription for amoxicillin. Patient was instructed to follow-up with [facility] in 5 to 7 days. Patient was instructed to return if worse in any way. Patient was instructed to take Tylenol or ibuprofen as needed for pain. Patient and caregiver understood and were agreeable with the plan. All questions were answered. Discharge Plan Triage Chief Complaint: Dental ED Provider: Bebeto Shelley Dx/Rx/DC Orders Clinical Impression: Infected dental caries Instructions: ED Dental Pain, ED Dental Cavity Prescriptions: New amoxicillin 500 mg tablet 500 mg PO TID Qty: 30 0RF Primary Care Provider: Anca Rosenberg Referrals: Anca Rosenberg MD [Primary Care Provider] - Aarti Mccain [facility], [facility] FORMER [facility] [[facility]] - 5-7 Days Print Language: Italian Disposition Disposition: Home, Self Care
[2024-07-26] MEDS: AMOXICILLIN 500 MG CAPSULE PO (19:55)
== END 2024-07-26 19:56 | disposition home or self-care (01) ==
LOC: ED 19:45
PROVIDERS: Emergency Provider Emergency Medicine; Visit Provider Emergency Medicine
DX: K04.7 Periapical abscess without sinus (principal); K02.9 Dental caries, unspecified; F17.210 Nicotine dependence, cigarettes, uncomplicated
CPT/HCPCS: 99282

== ENCOUNTER 2024-12-21 18:46 | Emergency (ER) | payer MEDICAID, SELFPAY ==
[2024-12-21 18:48] VITALS: BP 127/88; PULSE 95; RESP 18; TEMP 36.1; O2SAT 97; BMI 38.8
--- NOTE | 2024-12-21 21:23 | ED.VIS.LOWEX ---
HPI History of Present Illness HPI Narrative: 34-year-old male with no past medical history. States he had a left ingrown toenail for years. Has become more painful and swollen he came in tonight to have it evaluated. No other complaints. Chief Complaint: Lower Extremity Injury Informant: patient Narrative Narrative: 34-year-old male left ingrown toenail for years. Presents tonight to have it evaluated. Prior similar symptoms: Yes Recent Illness/Hospitalization: No PFSH PFSH Medical History Easy bruising Former smoker Anal fissure Constipation Autism Home Medications ?Medication ?Instructions ?Recorded ?Last Taken ?Type amoxicillin 500 mg tablet 500 mg PO TID #30 tabs 07/26/24 Unknown Rx cephalexin 500 mg capsule 500 mg PO TID 7 days #21 caps 12/21/24 Unknown Rx Allergy/AdvReac Type Severity Reaction Status Date / Time No Known Allergies Allergy Verified 12/21/24 18:47 Social History Smoking Status: Current some day smoker tobacco type: cigarettes ROS ROS ED ROS Narrative Denies recent illness. Constitutional Constitutional ED: Denies chills or fever(s) Eyes Eyes: Denies blurry vision ENT ENT ED: Denies ear pain Cardiovascular Cardiovascular: Denies chest pain Respiratory/Chest Respiratory/Chest: Denies cough or dyspnea Gastrointestinal Gastrointestinal: Denies abdominal pain Genitourinary Genitourinary ED: Denies dysuria or hematuria Musculoskeletal Musculoskeletal: Denies arthralgias or back pain Integumentary Denies abscess or Abrasions Neurologic Neurologic: Denies headache(s) Psychiatric Psychiatric: Denies anxiety Endocrine Endocrinology: Denies polydipsia Hematologic/Lymphatic Hematologic/Lymphatic: Denies easy bleeding, easy bruising or lymphadenopathy Allergic/Immunologic Allergic/Immunologic ED: Denies mouth swelling, tongue swelling or urticaria EXAM Physical Exam Narrative Exam Narrative: 31-year-old male no acute distress. Vital signs stable afebrile. H EENT exam pupils round react light. Moist mucous membranes. Neck nontender no lymphadenopathy. Lungs clear to auscultation. Heart regular rhythm no murmur. Rate about 90. Chest wall ribs nontender. Abdomen soft nontender. Moving all 4 extremities. Left great toe ingrown toenail on the medial aspect. Swollen red tender. No lymphangitic streaking. Neurovascularly intact. Const Vital Signs: 12/21/24 18:48 Temperature 97 F L Temperature Source Temporal Pulse Rate 95 Respiratory Rate 18 Blood Pressure 127/88 H Blood Pressure Mean 101 Pulse Ox 97 Oxygen Delivery Method Room Air Positive well nourished, well developed and obese; Negative for cachectic, contractures or unkempt General Appearance ED: well developed; Negative for unkempt, cachectic or contractures Nutritional Appearance: obese; Negative for cachectic HEENT Reports moist mucous membranes normocephalic and atraumatic Eyes PERRL Neck full ROM and supple Chest Wall inspection of chest normal and palpation of chest normal Resp normal respiratory effort, no retractions and clear to auscultation bilaterally Effort and Inspection: Negative for pain with movement Auscultation: Negative for rales, rhonchi or wheezes Cardio regular rate, regular rhythm, S1 normal heart sound, S2 normal heart sound and no murmurs GI non-tender, non-distended and no masses Palpation: soft; Negative for tender, guarding or rebound tenderness present Back/Spine no CVA tenderness Extremity normal to inspection and full ROM Extremity Narrative: Except left foot, left great toe ingrown nail medially. Swollen, red and tender. Consistent with ingrown toenail. Neuro oriented x3, CN's II-XII intact bilaterally and moves all extremities Sensorium / Orientation: alert, oriented to person, oriented to place and oriented to time Motor Exam: strength 5/5 throughout Psych mental status grossly normal Appearance: Negative for unkempt Skin no wounds Lesions: no lesions Rashes: no rashes MDM MDM MDM Narrative Medical decision making narrative: 34-year-old male left ingrown toenail. Digital block we performed all remove about a third of the nail. To be placed on antibiotics. Discharged to home. Treated as ingrown toenail. Partial resection. Be placed on antibiotics due to the soft tissue infection from ingrown nail. Outpatient follow-up with podiatry as needed. Motrin Tylenol for pain. History & Record Review Discussion w/independent historian: Patient Procedures Other Procedures Procedure(s): Right ingrown toenail partial resection. Digital block to the left great toe. Once proper anesthetic was obtained. I undermined the nail and removed the medial third. Patient tolerated well. Area was cleaned. To be dressed. Placed on Keflex 3 times daily for a week. Warm soaks. Follow-up with podiatry as needed. Return if worse. Discharge Plan Triage Chief Complaint: Lower Extremity Injury ED Provider: Leobardo Valencia Dx/Rx/DC Orders Clinical Impression: Ingrowing toenail of left foot Instructions: ED Ingrown Toenail, Excised Prescriptions: New cephalexin 500 mg capsule 500 mg PO TID 7 Days Qty: 21 0RF No Action amoxicillin 500 mg tablet 500 mg PO TID Qty: 30 0RF Primary Care Provider: Care Physician,No Primary Referrals: Raghavendra Tello DPM [Med Staff - Active Staff] - As Needed Care Physician,No Primary [Primary Care Provider] - Activity Restrictions/Additional Instructions: Motrin and Tylenol for pain. The antibiotic Keflex 3 times a day till gone. Follow-up podiatry as needed. If it is getting better you do not need to follow-up. Warm soaks daily. Print Language: Ukrainian Disposition Disposition: Home, Self Care
[2024-12-21] MEDS: Lidocaine 1% (20 ml mdv) 20 ML Vial 10 ML INFILT (21:37)
[2024-12-21 22:47] VITALS: BP 129/78; PULSE 69; O2SAT 100
[2024-12-21 23:17] VITALS: BP 129/78; PULSE 69; RESP 16; TEMP 36.6; O2SAT 100
== END 2024-12-21 23:18 | disposition home or self-care (01) ==
PROVIDERS: Emergency Provider Emergency Medicine; Visit Provider Emergency Medicine
DX: L60.0 Ingrowing nail (principal); E66.9 Obesity, unspecified; Z68.38 Body mass index [BMI] 38.0-38.9, adult; F17.210 Nicotine dependence, cigarettes, uncomplicated
CPT/HCPCS: 11750; 99283

== ENCOUNTER 2024-12-27 19:50 | Emergency (ER) | payer MEDICAID, SELFPAY ==
[2024-12-27 19:51] VITALS: BP 125/91; PULSE 79; RESP 16; TEMP 36.9; O2SAT 96
== END 2024-12-27 23:13 | disposition left against medical advice (07) ==
LOC: ED 23:31
DX: Z48.00 Encounter for change or removal of nonsurgical wound dressing (principal)